=== PATIENT | male | born 1965 | race Asian ===

== ENCOUNTER 2023-07-02 21:18 | Emergency (ER) | payer BC ==
[~2023-07-02] VITALS: Ht 170.2 cm; Wt 70.3 kg
[2023-07-02 21:58] VITALS: BP_SYST 130; PULSE 82; RESP 20; TEMP 98; O2SAT 96
[2023-07-02 22:16] LABS: BILIRUBIN,URINE NEGATIVE (NEGATIVE); COLOR,URINE YELLOW (YELLOW); GLUCOSE,URINE NEGATIVE (NEGATIVE); KETONES,URINE NEGATIVE (NEGATIVE); LEUKOCYTE ESTERASE ,URINE 2+ (NEGATIVE); NITRITE, URINE NEGATIVE (NEGATIVE); PROTEIN URINE NEGATIVE (NEGATIVE); UROBILINOGEN,URINE 0.2 (0.2-1.0)
[2023-07-02 22:24] LABS: BLOOD, URINE TRACE (NEGATIVE)
[2023-07-02 22:25] LABS: CLARITY/URINE SLIGHTLY HAZY (CLEAR); RBC,URINE NONE SEEN /HPF (0-3); WBC,URINE 20-50 /HPF (0-3)
[2023-07-02 22:26] LABS: BACTERIA,URINE FEW /HPF (None Seen); MUCUS,URINE None Seen /LPF (None Seen)
[2023-07-02 23:30] VITALS: BP_SYST 130; PULSE 82; RESP 20; TEMP 98; O2SAT 96
[2023-07-02] MEDS ORDERED: cefTRIAXone 1 GM in LIDOCAINE 1%, 20 ML MDV 2.1 ML IM ONE (23:30)
[2023-07-02] MEDS ORDERED: CIPR500T5 PO (23:46)
== END 2023-07-02 23:30 | disposition home or self-care (01) ==
LOC: SED 21:18
DX: N39.0 Urinary tract infection, site not specified (principal); R53.1 Weakness
CPT/HCPCS: 99283; 81001; 87086; 96372; J0696; J2001; 81000; 81015